=== PATIENT | male | born 1995 | race Hispanic/Latino ===

== ENCOUNTER 2023-06-18 16:06 | Emergency (ER) | payer OTHER ==
[~2023-06-18] VITALS: Ht 175.3 cm; Wt 72.6 kg
[2023-06-18] MEDS ORDERED: SODIUM CHLORIDE 0.9% 1000ML 1,000 ML IV ONE (16:15)
[2023-06-18] MEDS ORDERED: SODIUM CHLORIDE FLUSH 10 ML SYR IV PRN (16:15)
[2023-06-18 16:52] LABS: BASOPHILS % 0.6 % (0.0-1.0); EOSINOPHILS # (AUTO) 0.1 (0.0-0.4); EOSINOPHILS % 1.8 % (0.0-6.0); HEMOGLOBIN 14.8 g/dL (14.0-18.0); LYMPHOCYTES # (AUTO) 3.4 (1.0-3.2); LYMPHOCYTES % 47.7 % (18.0-39.1); MEAN CORPUSCULAR HEMOGLOBIN 30.1 pg (28-32); MEAN CORPUSCULAR HGB CONC 33.6 g/dL (31-35); MEAN CORPUSCULAR VOLUME 89.6 fL (81-99); MONOCYTES # (AUTO) 0.6 (0.2-0.8); MONOCYTES % 8.1 % (4.4-11.3); NEUTROPHILS # (AUTO) 2.9 (2.1-6.9); NEUTROPHILS % 41.5 % (38.7-80.0); PLATELET COUNT 318 x10e3/uL (140-360); RED BLOOD COUNT 4.91 x10e6/uL (4.3-5.7); RED CELL DISTRIBUTION WIDTH 11.9 % (11.7-14.4)
[2023-06-18 17:13] LABS: ALBUMIN/GLOBULIN RATIO 1.8 (0.8-2.0); ANION GAP 13.4 mmol/L (8-16); CALCIUM 10.1 mg/dL (8.4-10.2); CREATININE, SERUM 0.98 mg/dL (0.72-1.25); POTASSIUM 3.4 mmol/L (3.5-5.1)
[2023-06-18 17:33] LABS: FREE T4 (FREE THYROXINE) 1.07 ng/dL (0.8-1.8); THYROID STIMULATING HORMONE 0.94 uIU/mL (0.350-4.940)
[2023-06-18 18:01] LABS: AMPHETAMINES SCREEN,URINE NEGATIVE (NEGATIVE); BENZODIAZEPINES SCREEN,URINE NEGATIVE (NEGATIVE); PHENCYCLIDINE SCREEN,URINE NEGATIVE (NEGATIVE)
[2023-06-18 18:23] VITALS: BP 121/71; PULSE 66; RESP 16; O2SAT 100
== END 2023-06-18 18:13 | disposition home or self-care (01) ==
LOC: ER 16:13
DX: F41.0 Panic disorder [episodic paroxysmal anxiety] (principal); F90.9 Attention-deficit hyperactivity disorder, unspecified type
CPT/HCPCS: 36415; 71046; 80053; 80307; 84439; 84443; 84484; 85025; 93005; 94760; 99284; J7030